=== PATIENT | male | born 1955 | race Caucasian/White ===

== ENCOUNTER 2021-04-21 10:14 | Outpatient (CLI) | payer MEDICARE ==
[~2021-04-21] VITALS: Ht 70.5 cm; Wt 82.1 kg
[2021-04-21 10:21] VITALS: BP 144/70
[2021-04-21 10:27] VITALS: BP 144/70
[2021-04-21] MEDS ORDERED: diphenhydrAMINE 50 MG/ML INJ (BENADRYL) IV PRN (10:30)
[2021-04-21] MEDS ORDERED: ACETAMINOPHEN 500 MG TAB (TYLENOL) PO PRN (10:30)
[2021-04-21] MEDS ORDERED: ONDANSETRON 4 MG/2 ML (SDV) Z0FRAN IV PRN (10:30)
[2021-04-21] MEDS ORDERED: CASIRIVIMAB/IMDEVIMAB 1,200 MG in NS (IVPB) 250 ML IV ONE (10:30)
[2021-04-21] MEDS ORDERED: EPINEPHrine INJECTION 1 MG/ML AMP IM PRN (10:30)
[2021-04-21 12:27] VITALS: BP 128/74
== END 2021-04-21 12:30 | disposition home or self-care (01) ==
LOC: INFUSION 10:14
PROVIDERS: ATTEND Nurse Practitioner Family
DX: U07.1 COVID-19 (principal)